=== PATIENT | male | born 1960 | race Caucasian/White ===

== ENCOUNTER 2017-03-17 15:54 | Emergency (ER) | payer SELFPAY ==
[~2017-03-17] VITALS: Ht 182.9 cm; Wt 83.9 kg
--- NOTE | 2017-03-17 15:56 | NUR ---
pt [facility] [facility] to er bed 09. c/o rle pain. pt seen in er multiple times for same reason. etoh smell. requesting narcotics. vss. awaiting md huitron.
--- NOTE | 2017-03-17 16:11 | NUR ---
dr urena at bedside for eval.
--- NOTE | 2017-03-17 16:15 | NUR ---
radiology at bedside for rt tib/fib xray.
[2017-03-17] MEDS ORDERED: KETOROLAC TROMETHAMINE INJ 30 MG/ML VIAL ONE (16:19)
[2017-03-17] MEDS ORDERED: KETOROLAC TROMETHAMINE INJ 30 MG/ML VIAL IM ONE (16:30)
[2017-03-17] MEDS ORDERED: MORPHINE SULFATE INJ 2 MG/ML DISP.SYRIN IM ONE (16:30)
--- NOTE | 2017-03-17 17:24 | NUR ---
Patient discharged to home in stable condition. Written and verbal after care instructions given. Patient verbalizes understanding of instruction.
[2017-03-17 17:25] VITALS: BP 121/84
== END 2017-03-17 17:25 | disposition home or self-care (01) ==
LOC: ER 15:56
DX: M79.661 Pain in right lower leg (principal); G89.29 Other chronic pain
CPT/HCPCS: 73590; 96372; 99284; A4606; J1885; Z7610

== ENCOUNTER → 2019-12-23 | Emergency (ER) | payer OTHER ==
[~2019-12-23] VITALS: Ht 177.8 cm; Wt 83.9 kg
[~2019-12-23] MED LIST: ACETAMINOPHEN 325 MG TABLET ONE; ACETAMINOPHEN 325 MG TABLET PO ONE
--- NOTE | 2019-12-23 13:05 | NUR ---
PT REC'D TO ER VIA EMS ETOH PT STTED RT GARCIA PAIN [place] NOTIED VSSAWAITING EVALUATION BY ER PROVIDER.
--- NOTE | 2019-12-23 13:23 | NUR ---
PT GIVEN TYENOL FOR RT WSHIN PAIN
--- NOTE | 2019-12-23 15:22 | NUR ---
PT AWAKE GIVEN PO'S TOLERATING WELL PENDING AMB WITH ASSISTANCE
[2019-12-23 15:40] VITALS: BP 132/67
--- NOTE | 2019-12-23 15:41 | NUR ---
PT ABLE TO WALK PT. VERBALIZED UNDERSTANDING OF AFTERCARE INSTRUCTIONS.Patient discharged to home in stable condition. Written and verbal after care instructions given. Patient verbalizes understanding of instruction.
== END | disposition home or self-care (01) ==
LOC: ER 12:30
DX: F10.129 Alcohol abuse with intoxication, unspecified (principal); G89.29 Other chronic pain; M79.604 Pain in right leg; F17.200 Nicotine dependence, unspecified, uncomplicated; Y90.9 Presence of alcohol in blood, level not specified
CPT/HCPCS: 73590-TC

== ENCOUNTER 2020-01-25 13:27 | Emergency (ER) | payer OTHER ==
[~2020-01-25] VITALS: Ht 185.4 cm; Wt 88.5 kg
[2020-01-25] MEDS ORDERED: KETOROLAC TROMETHAMINE INJ 60 MG/2 ML VIAL IM ONE (14:00)
[2020-01-25] MEDS ORDERED: KETOROLAC TROMETHAMINE INJ 30 MG/ML VIAL ONE (14:10)
--- NOTE | 2020-01-25 14:10 | NUR ---
PT PRESENTED TO THE ER WITH A C/O CHRONIC RLE PAIN. PT IS + ETOH. PT SMELLS OF URINE AND APPEARS INTOXICATED. PT STATED THAT THE PAIN MEDICATION ORDERED WILL NOT WORK FOR HIS PAIN. PT STATED THAT HE WOULD TRY IT, BUT IF IT WASN'T AFFECTIVE MIGHT NEED STRONGER MEDICATION. WILL ASSESS PT LATER FOR PAIN S/P TORADOL INJECTION.
--- NOTE | 2020-01-25 15:11 | NUR ---
PT DENIES BEING HOMELESS AND GAVE THE FOLLOWING ADDRESS HIS HOME ADDRESS: [address] [place] [address], [place] [address]. PT STATED THAT HE WILL NEED A TAP CARD TO GET HOME. ZAHRA, STRAPPER OPERATOR WAS NOTIFIED.
--- NOTE | 2020-01-25 15:35 | NUR ---
Patient discharged to home in stable condition. Written and verbal after care instructions given. Patient verbalizes understanding of instruction AND RX. PT REC'D A TAP CARD TO GET HOME, A SANDWICH, JUICE, AND PT REFUSED FRESH PANTS. PT STATED THAT HE WAS GOING TO BUY A NEW PAIR RIGHT AWAY. PT AMBULATED OUT WITH A STEADY GAIT. VSS.
--- NOTE | 2020-01-25 15:35 | NUR ---
PT AMBULATED WITH A STEADY GAIT, NO ATAXIA NOTED
[2020-01-25 15:37] VITALS: BP 127/78
== END 2020-01-25 15:38 | disposition home or self-care (01) ==
LOC: ER 13:28
DX: G89.29 Other chronic pain (principal); M79.661 Pain in right lower leg; F17.200 Nicotine dependence, unspecified, uncomplicated
CPT/HCPCS: 73590; 96372; 99283; J1885

== ENCOUNTER 2023-12-07 17:29 | Emergency (ER) | payer MEDICAID ==
[~2023-12-07] VITALS: Ht 182.9 cm; Wt 90.7 kg
[~2023-12-07 17:29] MED LIST changes: +ACET-2605 PO; +ACET-868 PO; -ACETAMINOPHEN 325 MG TABLET ONE; -ACETAMINOPHEN 325 MG TABLET PO ONE
[2023-12-07 17:49] VITALS: BP 122/84; TEMP 98.1; O2SAT 98
[2023-12-07] MEDS ORDERED: KETOROLAC TROMETHAMINE INJ 30 MG/ML VIAL IM ONE (18:00)
[2023-12-07] MEDS ORDERED: ACETAMINOPHEN ES 500 MG TABLET ONE (18:00)
[2023-12-07] MEDS ORDERED: ACETAMINOPHEN ES 500 MG TABLET PO ONE (18:00)
[2023-12-07] MEDS ORDERED: KETOROLAC TROMETHAMINE INJ 30 MG/ML VIAL ONE (18:00)
[2023-12-08] MEDS ORDERED: ACET-2605 PO (20:03)
[2023-12-08] MEDS ORDERED: CEPH500C2 PO (20:03)
[2023-12-08] MEDS ORDERED: SULF1TAB48 PO (20:03)
[2023-12-08] MEDS ORDERED: IBUP-1955 PO (20:03)
[2023-12-08] MEDS ORDERED: MUPI22OI2 TP (20:06)
== END 2023-12-07 18:19 | disposition home or self-care (01) ==
LOC: ER 17:34 → MERGE 17:34 → ER 18:19
DX: S89.91XA Unspecified injury of right lower leg, initial encounter (principal); Z60.2 Problems related to living alone; X58.XXXA Exposure to other specified factors, initial encounter; Y93.89 Activity, other specified; Y92.89 Other specified places as the place of occurrence of the external cause; Y99.8 Other external cause status
CPT/HCPCS: 99283; 96372; J1885

== ENCOUNTER 2023-12-08 17:25 | Emergency (ER) | payer SELFPAY ==
[~2023-12-08] VITALS: Ht 182.9 cm; Wt 90.7 kg
[2023-12-08 17:52] VITALS: TEMP 98.2
[2023-12-08] MEDS ORDERED: LIDOCAINE 5% (PATCH) 1 EA PATCH TP ONE ×2 (18:00→18:06)
[2023-12-08] MEDS ORDERED: ACETAMINOPHEN ES 500 MG TABLET PO ONE (18:00)
[2023-12-08] MEDS ORDERED: ACETAMINOPHEN ES 500 MG TABLET ONE (18:06)
[2023-12-08 19:23] LABS: BASOPHILS # (AUTO) 0.1 K/uL (0.0-0.2); BASOPHILS % (AUTO) 1.1 % (0.0-2.0); EOSINOPHILS # (AUTO) 0.4 K/uL (0.0-0.7); EOSINOPHILS % (AUTO) 6.5 % (0.0-6.0); HEMATOCRIT 38 % (39-51); HEMOGLOBIN 12.4 g/dL (13.5-17.5); LYMPHOCYTES # (AUTO) 2.2 K/uL (0.8-4.8); LYMPHOCYTES % (AUTO) 35.2 % (20.0-44.0); MEAN CORPUSCULAR HEMOGLOBIN 32 PG (26.0-33.0); MEAN CORPUSCULAR HGB CONC 33 g/dl (31.0-36.0); MEAN CORPUSCULAR VOLUME 97 fL (80-96); MONOCYTES # (AUTO) 0.3 K/uL (0.1-1.30); MONOCYTES % (AUTO) 4.3 % (2.0-12.0); NEUTROPHILS # (AUTO) 3.2 K/uL (1.8-8.9); NEUTROPHILS % (AUTO) 52.9 % (43.0-81.0); PLATELET COUNT (AUTO) 284 K/uL (150-450); RED BLOOD CELL COUNT(AUTO) 3.88 MIL/uL (4.5-6.0); RED CELL DISTRIBUTION WIDTH 14.1 % (11.5-15.0); WHITE BLOOD COUNT (AUTO) 6.1 K/uL (4.3-11.0)
[2023-12-08 19:55] LABS: CALCIUM, SERUM 8.5 mg/dL (8.5-10.1); CREATININE 0.7 mg/dL (0.6-1.3); POTASSIUM 3.8 mmol/L (3.5-5.1)
[2023-12-08] MEDS ORDERED: SULFAMETH/TRIMETH 800/160 MG 1 UDTAB TABLET PO ONE (20:00)
[2023-12-08] MEDS ORDERED: CEPHALEXIN MONOHYDRATE 500 MG CAPSULE PO ONE ×2 (20:00→20:17)
[2023-12-08] MEDS ORDERED: KETOROLAC TROMETHAMINE INJ 60 MG/2 ML VIAL IM ONE (20:00)
[2023-12-08] MEDS ORDERED: CEPH500C2 PO (20:03)
[2023-12-08] MEDS ORDERED: SULF1TAB48 PO (20:03)
[2023-12-08] MEDS ORDERED: IBUP-1955 PO (20:03)
[2023-12-08] MEDS ORDERED: ACET-2605 PO (20:03)
[2023-12-08] MEDS ORDERED: MUPI22OI2 TP (20:06)
[2023-12-08] MEDS ORDERED: KETOROLAC TROMETHAMINE INJ 30 MG/ML VIAL ONE (20:17)
[2023-12-08] MEDS ORDERED: SULFAMETH/TRIMETH 800/160 MG 1 UDTAB TABLET ONE (20:17)
[2023-12-08 20:57] VITALS: BP 128/79; O2SAT 100
== END 2023-12-08 20:58 | disposition home or self-care (01) ==
LOC: ER 18:10
DX: L03.312 Cellulitis of back [any part except buttock and flank] (principal); Z79.899 Other long term (current) drug therapy
CPT/HCPCS: 99284; 72100; 85025; 80048; 36415; J1885; A6403